=== PATIENT | female | born 1970 ===

== ENCOUNTER 2021-07-14 06:30 | Day surgery (SDC) | payer OTHER ==
[~2021-07-14 06:30] MED LIST: CLONAZEPAM2 MG PO; NORVASC2.5 M1 PO; TENORMIN100 M1 PO; ZOLOFT50 MG PO
== END 2021-07-14 16:50 | disposition home or self-care (01) ==
LOC: CIR.AMB 06:30 → EDBD 07:00 → CIR.AMB 07:00
PROVIDERS: ATTEND Specialist
DX: D25.9 Leiomyoma of uterus, unspecified (principal); Q51.828 Other congenital malformations of cervix; Z85.038 Personal history of other malignant neoplasm of large intestine; Z88.2 Allergy status to sulfonamides; I10 Essential (primary) hypertension; F32.A Depression, unspecified; Z20.822 Contact with and (suspected) exposure to COVID-19